=== PATIENT | male | born 1975 | race Two or more races ===

== ENCOUNTER 2018-02-23 23:48 | Emergency (ER) | payer SELFPAY ==
[~2018-02-23] VITALS: Ht 167.6 cm; Wt 68.0 kg
--- NOTE | 2018-02-24 00:39 | PHYS DOC ---
Past Medical History Past Medical History: No Pertinent History Past Surgical History: No Surgical History Alcohol Use: Occasionally Drug Use: None Adult General Chief Complaint Chief Complaint: URINE CATHETER PROBLEM HPI HPI Patient is a 42 year old male who presents today complaining of moderate pain on his lower back as well as scrotal area. Patient states he was thrown off a horse one month ago, he states he fractured his pelvis and he had surgery. He states he ended up with a suprapubic catheter, he is non weight bearing to BLE and currently wheelchair bound. He states since this morning he has had increased pain to his lower back as well as his scrotal area. Patient denies any new injuries. He states he is on hydrocodone but ran out of the medication. Patient denies any fever. Denies any nausea /vomiting. He states he is nonweightbearing to bilateral lower extremities. Review of Systems Review of Systems Constitutional: Denies fever or chills [] Eyes: Denies change in visual acuity, redness, or eye pain [] HENT: Denies nasal congestion or sore throat [] Respiratory: Denies cough or shortness of breath [] Cardiovascular: No additional information not addressed in HPI [] GI: Denies abdominal pain, nausea, vomiting, bloody stools or diarrhea [] : Denies dysuria or hematuria [] Male :Reports scrotal pain Musculoskeletal: Reports bilateral low back pain Integument: Denies rash or skin lesions [] Neurologic: Denies headache, focal weakness or sensory changes [] All other systems were reviewed and found to be within normal limits, except as documented in this note. Current Medications Current Medications Current Medications Medications (Trade) Dose Ordered Sig/Tonia Start Time Stop Time Status Last Admin Dose Admin Ceftriaxone Sodium 1 gm/ Dextrose 50 ml @ 100 mls/hr Q24H 02/24/18 03:30 UNV Ceftriaxone Sodium (Rocephin) 1 gm 1X ONCE 02/24/18 04:00 02/24/18 04:01 DC 02/24/18 03:55 1 GM Lactobacillus Rhamnosus (Culturelle) 1 cap BID 02/24/18 09:00 Cancel Morphine Sulfate (Morphine Sulfate) 5 mg 1X ONCE 02/24/18 01:00 02/24/18 01:01 DC 02/24/18 01:06 5 MG Ondansetron HCl (Zofran) 4 mg 1X ONCE 02/24/18 01:00 02/24/18 01:01 DC 02/24/18 01:06 4 MG Sodium Chloride 1,000 ml @ 1,000 mls/hr 1X ONCE 02/24/18 01:00 02/24/18 01:59 DC 02/24/18 00:55 1,000 MLS/HR Tamsulosin HCl (Flomax) 0.4 mg 1X ONCE 02/24/18 01:00 02/24/18 01:01 DC 02/24/18 01:05 0.4 MG Allergies Allergies Allergies Coded Allergies Type Severity Reaction Last Updated Verified No Known Drug Allergies 05/26/13 No Physical Exam Physical Exam Constitutional: Well developed, well nourished, no acute distress, non-toxic appearance. [] HENT: Normocephalic, atraumatic, bilateral external ears normal, oropharynx moist, no oral exudates, nose normal. [] Eyes: PERRLA, EOMI, conjunctiva normal, no discharge. [] Neck: Normal range of motion, no tenderness, supple, no stridor. [] Cardiovascular:Heart rate regular rhythm, no murmur [] Lungs & Thorax: Bilateral breath sounds clear to auscultation [] Abdomen: Suprapubic catheter noted. Urine bright pink with the sediments, patient states his own cranberry juice and azo. Bowel sounds normal, soft, no tenderness, no masses, no pulsatile masses. [] Male : Exterior scrotum appears slightly erythematous. No palpable masses. No warmth. Skin: Warm, dry, no erythema, no rash. [] Back: No tenderness, no CVA tenderness. [] Extremities: No tenderness, no cyanosis, no clubbing, ROM intact, no edema. [] Neurologic: Alert and oriented X 3, normal motor function, normal sensory function, no focal deficits noted. [] Psychologic: Affect normal, judgement normal, mood normal. [] Current Patient Data Vital Signs Vital Signs Date Time Temp Pulse Resp B/P (MAP) Pulse Ox O2 Delivery O2 Flow Rate FiO2 02/24/18 03:30 74 18 124/77 (93) 99 Room Air 02/24/18 00:00 99.0 99.0 Lab Values Laboratory Tests Test 02/24/18 00:50 White Blood Count 11.2 x10^3/uL (4.0-11.0) H Red Blood Count 4.20 x10^6/uL (4.30-5.70) L Hemoglobin 12.5 g/dL (13.0-17.5) L Hematocrit 37.2 % (39.0-53.0) L Mean Corpuscular Volume 89 fL (79-100) Mean Corpuscular Hemoglobin 30 pg (25-35) Mean Corpuscular Hemoglobin Concent 34 g/dL (31-37) Red Cell Distribution Width 14.0 % (11.5-14.5) Platelet Count 389 x10^3/uL (140-400) Neutrophils (%) (Auto) 59 % (31-73) Lymphocytes (%) (Auto) 29 % (24-48) Monocytes (%) (Auto) 10 % (0-9) H Eosinophils (%) (Auto) 2 % (0-3) Basophils (%) (Auto) 1 % (0-3) Neutrophils # (Auto) 6.6 x10^3uL (1.8-7.7) Lymphocytes # (Auto) 3.2 x10^3/uL (1.0-4.8) Monocytes # (Auto) 1.1 x10^3/uL (0.0-1.1) Eosinophils # (Auto) 0.2 x10^3/uL (0.0-0.7) Basophils # (Auto) 0.1 x10^3/uL (0.0-0.2) Urine Color [place] Urine Clarity Cloudy Urine pH Urine Specific [place] Urine Protein mg/dL (NEG-TRACE) Urine Glucose (UA) Negative mg/dL (NEG) Urine Ketones (Stick) mg/dL (NEG) Urine Blood (NEG) Urine Nitrite (NEG) Urine Bilirubin (NEG) Urine Urobilinogen Dipstick mg/dL (0.2 mg/dL) Urine Leukocyte Esterase (NEG) Urine RBC 6-10 /HPF (0-2) Urine WBC Tntc /HPF (0-4) Urine Squamous Epithelial Cells Occ /LPF Urine Bacteria Moderate /HPF (0-FEW) Sodium Level 139 mmol/L (136-145) Potassium Level 3.8 mmol/L (3.5-5.1) Chloride Level 103 mmol/L (98-107) Carbon Dioxide Level 26 mmol/L (21-32) Anion Gap 10 (6-14) Blood Urea Nitrogen 15 mg/dL (8-26) Creatinine 0.8 mg/dL (0.7-1.3) Estimated GFR (Cockcroft-Gault) 107.1 BUN/Creatinine Ratio 19 (6-20) Glucose Level 114 mg/dL (70-99) H Calcium Level 8.9 mg/dL (8.5-10.1) Total Bilirubin 0.2 mg/dL (0.2-1.0) Aspartate Amino Transferase (AST) 15 U/L (15-37) Alanine Aminotransferase (ALT) 19 U/L (16-63) Alkaline Phosphatase 108 U/L (46-116) Total Protein 7.3 g/dL (6.4-8.2) Albumin 3.0 g/dL (3.4-5.0) L Albumin/Globulin Ratio 0.7 (1.0-1.7) L Lipase 121 U/L (73-393) Urine Opiates Screen Neg (NEG) Urine Methadone Screen Neg (NEG) Urine Barbiturates Neg (NEG) Urine Phencyclidine Screen Neg (NEG) Urine Amphetamine/Methamphetamine Neg (NEG) Urine Benzodiazepines Screen Neg (NEG) Urine Cocaine Screen Neg (NEG) Urine Cannabinoids Screen Pos (NEG) Urine Ethyl Alcohol Neg (NEG) Laboratory Tests 02/24/18 00:50 Laboratory Tests 02/24/18 00:50 EKG EKG [] Radiology/Procedures Radiology/Procedures [facility] [address] [place] [address] IMAGING REPORT Signed PATIENT: HILARY LIU ACCOUNT: [id number] : 1975 LOCATION: ER AGE: 42 SEX: M EXAM STATUS: REG ER ORD. PHYSICIAN: JOSE J CASTRO APRN REASON: pain to the scrotum/testicles PROCEDURE: TESTICULAR/SCROTUM Scrotal ultrasound: Reason for examination: Pain in the scrotum/testicles. The right testicle measures 4.3 x 3.2 x 1.8 cm in greatest dimension and appears homogeneous and shows normal blood flow. The epididymis is normal in size at 10 x 8.3 x 7.3 mm with normal vascular flow. There is a small right hydrocele. The left testicle measures 4.0 x 2.0 x 2.9 cm in greatest dimension and appears homogeneous and shows normal blood flow. The left epididymis measures 11.2 x 8.1 x 1.1 cm in greatest dimension and shows normal vascularity. A small left hydrocele is present. IMPRESSION: Small hydroceles bilaterally. No focal abnormalities at the testicles or epididymitis. Electronically signed by: Nadira Elliott MD (02/24/2018 2:10 AM) [facility] DICTATED and SIGNED BY: NADIRA ELLIOTT MD DATE: 02/24/18 0207 [facility] [address] [place] [address] IMAGING REPORT Signed PATIENT: HILARY LIU ACCOUNT: [id number] : 1975 LOCATION: ER AGE: 42 SEX: M EXAM STATUS: REG ER ORD. PHYSICIAN: JOSE J CASTRO APRN REASON: pubic pain, scrotal pain hx of pelvic fx one month ago PROCEDURE: CT ABDOMEN PELVIS WO CONTRAST CT abdomen and pelvis without contrast: Reason for examination: Pubic pain and scrotal pain. History of pelvic fracture one month ago. Helical images were obtained through the abdomen pelvis with no intravenous or oral contrast administered. Reconstruction was performed in sagittal and coronal planes. Exposure: One or more of the following individualized dose reduction techniques were utilized for this examination: 1. Automated exposure control 2. Adjustment of the mA and/or kV according to patient size 3. Use of iterative reconstruction technique. The lung bases are clear. The heart size is normal with no pericardial effusion. No abnormality seen at the liver, spleen, adrenal glands, or pancreas. Gallbladder is contracted but no choleliths are seen. There is a large amount of gastric content present. No abnormality seen at the appendix. The intestinal tract shows no evidence of diverticulosis or diverticulitis. The small intestine is not distended. The kidneys show no renal masses, renal calculi, hydronephrosis or evidence of obstructive uropathy. There is a large amount of streak artifact in the pelvis from postop changes anteriorly in the pelvis with fractures seen in the pubic bones and ischial bones bilaterally and fracture seen at the left sacrum corresponding to history of pelvic fracture. Suprapubic catheter is present in the bladder. Prostate gland is not enlarged. Seminal vesicles appear symmetric. No free fluid is seen in the abdomen or pelvis. IMPRESSION: Contracted gallbladder but no cholelithiasis. The stomach however is distended with large amount of gastric content in the patient has not been nothing by mouth. No kidney stones or obstructive uropathy evident. Postop changes in the pelvic with fractures of the pubic and ischial bones bilaterally and left sacrum. Electronically signed by: Nadira Elliott MD (02/24/2018 2:33 AM) [facility] DICTATED and SIGNED BY: NADIRA ELLIOTT MD DATE: 02/24/18209 Course & Med Decision Making Course & Med Decision Making Pertinent Labs and Imaging studies reviewed. (See chart for details) This is a 42-year-old male patient presenting to the ED today complaining of low back pain as well as scrotal pain. Patient fractured his pelvis a month ago. He is nonweightbearing to bilateral lower extremities. Has a suprapubic catheter, non weight bearing to bilateral lower extremities currently wheel chair bound. He also ran out of his pain medicine. 00:[address] Rothman 03:10 Patient feels better with decreased pain. Abdominal pelvic CT scan notes gastric distention otherwise unremarkable without acute changes. Will given Rocephin for UTI. Patient to follow-up with PCP for further evaluation. Ed Disclaimer Ed Disclaimer This electronic medical record was generated, in whole or in part, using a voice recognition dictation system. Departure Departure Impression: Primary Impression: Low back pain Additional Impressions: Post-operative pain UTI (urinary tract infection) Disposition: 01 HOME, SELF-CARE Condition: STABLE Referrals: NO PCP (PCP) Follow-up for further evaluation tomorrow LIGIA CLEMENTE MD Patient Instructions: Back Pain, Adult, Urinary Tract Infection Additional Instructions: If you develop worse pain, fevers, vomiting, shortness of breath return to the Emergency Department. Scripts Oxycodone/Apap 5-325 (PERCOCET 5-325 MG TABLET) 1 Each Tablet 1 TAB PO QID, #12 TAB Prov: APRIL ROTHMAN MD 02/24/18 Cephalexin (KEFLEX) 250 Mg Capsule 1 CAP PO TID, #21 CAP Prov: APRIL ROTHMAN MD 02/24/18 Problem Qualifiers Primary Impression: Low back pain Chronicity: acute Back pain laterality: bilateral Sciatica presence: without sciatica Qualified Codes: M54.5 - Low back pain JOSE J CASTRO APRN Feb 24, 2018 00:39 APRIL ROTHMAN MD Feb 24, 2018 03:26
[2018-02-24] MEDS ORDERED: IV NORMAL SALINE 1000ML BAG 1,000 ML IV ONE (01:00)
[2018-02-24] MEDS ORDERED: MORPHINE SULFATE 10 MG/ML VIAL. IV ONE (01:00)
[2018-02-24] MEDS ORDERED: TAMSULOSIN 0.4 MG CAP.ER.24H. PO ONE (01:00)
[2018-02-24] MEDS ORDERED: ONDANSETRON PF 4 MG/2 ML VIAL. IV ONE (01:00)
[2018-02-24 01:10] LABS: BASO # 0.1 x10^3/uL (0.0-0.2); BASO % 1 % (0-3); EOS # 0.2 x10^3/uL (0.0-0.7); EOS % 2 % (0-3); HEMATOCRIT 37.2 % (39.0-53.0); HEMOGLOBIN 12.5 g/dL (13.0-17.5); LYMPH # 3.2 x10^3/uL (1.0-4.8); LYMPH % 29 % (24-48); MEAN CORPUSCULAR HEMOGLOBIN 30 pg (25-35); MEAN CORPUSCULAR HGB CONC 34 g/dL (31-37); MEAN CORPUSCULAR VOLUME 89 fL (79-100); MONO # 1.1 x10^3/uL (0.0-1.1); MONO % 10 % (0-9); NEUT # 6.6 x10^3uL (1.8-7.7); NEUT % 59 % (31-73); PLATELET COUNT 389 x10^3/uL (140-400); WHITE BLOOD COUNT 11.2 x10^3/uL (4.0-11.0)
[2018-02-24 01:18] LABS: CLARITY,URINE CLOUDY; COLOR,URINE ORANGE
[2018-02-24 01:28] LABS: BARBITURATES NEG (NEG); BENZODIAZEPINES NEG (NEG); CANNABINOIDS POS (NEG); COCAINE NEG (NEG); METHADONE NEG (NEG); OPIATES NEG (NEG); PHENCYCLIDINE NEG (NEG)
[2018-02-24 01:33] LABS: CALCIUM 8.9 mg/dL (8.5-10.1); CREATININE 0.8 mg/dL (0.7-1.3); GFR 107.1; POTASSIUM 3.8 mmol/L (3.5-5.1)
[2018-02-24 01:42] LABS: AMPHETAMINE/METHAMPHETAMINE NEG (NEG)
[2018-02-24 01:43] LABS: ALBUMIN/GLOBULIN RATIO 0.7 (1.0-1.7); TOTAL BILIRUBIN 0.2 mg/dL (0.2-1.0); TOTAL PROTEIN 7.3 g/dL (6.4-8.2)
[2018-02-24 02:02] LABS: BACTERIA,URINE MODERATE /HPF (0-FEW); SQUAMOUS EPITHELIAL CELL,UR OCC /LPF; WBC,URINE TNTC /HPF (0-4)
--- NOTE | 2018-02-24 02:13 | RAD ---
Scrotal ultrasound: Reason for examination: Pain in the scrotum/testicles. The right testicle measures 4.3 x 3.2 x 1.8 cm in greatest dimension and appears homogeneous and shows normal blood flow. The epididymis is normal in size at 10 x 8.3 x 7.3 mm with normal vascular flow. There is a small right hydrocele. The left testicle measures 4.0 x 2.0 x 2.9 cm in greatest dimension and appears homogeneous and shows normal blood flow. The left epididymis measures 11.2 x 8.1 x 1.1 cm in greatest dimension and shows normal vascularity. A small left hydrocele is present. IMPRESSION: Small hydroceles bilaterally. No focal abnormalities at the testicles or epididymitis. Electronically signed by: Nadira Rascon MD (02/24/2018 2:10 AM) [facility]
--- NOTE | 2018-02-24 02:37 | RAD ---
CT abdomen and pelvis without contrast: Reason for examination: Pubic pain and scrotal pain. History of pelvic fracture one month ago. Helical images were obtained through the abdomen pelvis with no intravenous or oral contrast administered. Reconstruction was performed in sagittal and coronal planes. Exposure: One or more of the following individualized dose reduction techniques were utilized for this examination: 1. Automated exposure control 2. Adjustment of the mA and/or kV according to patient size 3. Use of iterative reconstruction technique. The lung bases are clear. The heart size is normal with no pericardial effusion. No abnormality seen at the liver, spleen, adrenal glands, or pancreas. Gallbladder is contracted but no choleliths are seen. There is a large amount of gastric content present. No abnormality seen at the appendix. The intestinal tract shows no evidence of diverticulosis or diverticulitis. The small intestine is not distended. The kidneys show no renal masses, renal calculi, hydronephrosis or evidence of obstructive uropathy. There is a large amount of streak artifact in the pelvis from postop changes anteriorly in the pelvis with fractures seen in the pubic bones and ischial bones bilaterally and fracture seen at the left sacrum corresponding to history of pelvic fracture. Suprapubic catheter is present in the bladder. Prostate gland is not enlarged. Seminal vesicles appear symmetric. No free fluid is seen in the abdomen or pelvis. IMPRESSION: Contracted gallbladder but no cholelithiasis. The stomach however is distended with large amount of gastric content in the patient has not been nothing by mouth. No kidney stones or obstructive uropathy evident. Postop changes in the pelvic with fractures of the pubic and ischial bones bilaterally and left sacrum. Electronically signed by: Nadira Rascon MD (02/24/2018 2:33 AM) [place] [id number]
[2018-02-24] MEDS ORDERED: CEPH-263 PO (03:26)
[2018-02-24] MEDS ORDERED: OXYC-323 PO (03:26)
[2018-02-24 03:30] VITALS: BP 124/77
[2018-02-24] MEDS ORDERED: cefTRIAXone IV Push 1 GM VIAL. IVP ONE (04:00)
[2018-02-24] MEDS ORDERED: LACTOBACILLUS RHAMNOSUS GG 1 CAPSULE. PO SCH (09:00)
[2018-02-24] MEDS ORDERED: cefTRIAXone IV Push 1 GM VIAL. IVP SCH (23:00)
== END 2018-02-24 04:06 | disposition home or self-care (01) ==
LOC: ER 23:48
DX: N39.0 Urinary tract infection, site not specified (principal); M54.5 Low back pain; G89.18 Other acute postprocedural pain; L53.8 Other specified erythematous conditions; N43.3 Hydrocele, unspecified
CPT/HCPCS: 36415; 74176; 76870; 80053; 80307; 81001; 83690; 85025; 87086; 96374; 96375; 99285; J0696; J2270; J2405; J7030; G0479

== ENCOUNTER 2018-03-03 20:34 | Emergency (ER) | payer SELFPAY ==
[~2018-03-03] VITALS: Ht 172.7 cm; Wt 68.0 kg
[~2018-03-03 20:34] MED LIST: CEPH-263 PO; OXYC-323 PO
--- NOTE | 2018-03-03 21:01 | PHYS DOC ---
Past Medical History Past Medical History: No Pertinent History Past Surgical History: Tonsillectomy Additional Past Surgical Histo: PELVIS REPAIR Alcohol Use: None Drug Use: Marijuana Adult General Chief Complaint Chief Complaint: POST-OP PROBLEM HPI HPI Patient is a 42 year old man who presents with lower abdominal pain Patient was seen by me last week on the and ran out of his pain medication 2 days ago Tuesday. Since then, his had increased pain in his lower abdomen and pelvis. He feels a sense of burning in his urethra though he has a suprapubic catheter. He also complains of right thigh pain. No fevers or vomiting. Patient states he called his primary doctor is Dr. Miles at [facility] and was unable to get a refill of his pain medication, hydrocodone. That's why he came to [facility] today. Patient states he was thrown off a horse one month ago with fractured pelvis and ORIF surgery. He ended up with a suprapubic catheter and is non weight bearing to [facility], currently wheelchair bound. Review of Systems Review of Systems Constitutional: Denies fever or chills Eyes: Denies change in visual acuity, redness, or eye pain HENT: Denies nasal congestion or sore throat Respiratory: Denies cough or shortness of breath Cardiovascular: Denies chest pain or palpitations GI: with lower abdominal pain, nausea, no vomiting, bloody stools or diarrhea : Denies dysuria or hematuria Musculoskeletal: with back and pelvic pain, right thigh pain, denies joint pain Integument: Denies rash or skin lesions Neurologic: Denies headache, focal weakness or sensory changes Endocrine: Denies polyuria or polydipsia All other systems were reviewed and found to be within normal limits, except as documented in this note. Current Medications Current Medications Current Medications Medications (Trade) Dose Ordered Sig/Tonia Start Time Stop Time Status Last Admin Dose Admin Acetaminophen/ Hydrocodone Bitart (Lortab 5/325) 1 tab 1X ONCE 03/03/18 22:00 03/03/18 22:01 DC 03/03/18 22:00 1 TAB Enoxaparin Sodium (Lovenox 80mg Syringe) 70 mg 1X ONCE 03/04/18 00:15 03/04/18 00:16 DC 03/04/18 00:46 70 MG Magnesium Oxide (Magnesium Oxide) 800 mg 1X ONCE 03/03/18 22:55 03/03/18 22:56 DC 03/03/18 22:55 800 MG Oxybutynin Chloride (Ditropan) 5 mg 1X ONCE 03/04/18 00:15 03/04/18 00:16 DC 03/04/18 00:25 5 MG Potassium Chloride (KCl Oral Soln) 40 meq 1X ONCE 03/03/18 22:55 03/03/18 22:56 DC 03/03/18 23:13 40 MEQ Warfarin Sodium (Coumadin) 5 mg 1X ONCE 03/04/18 00:45 03/04/18 00:46 DC 03/04/18 00:47 5 MG Allergies Allergies Allergies Coded Allergies Type Severity Reaction Last Updated Verified No Known Drug Allergies 05/26/13 No Physical Exam Physical Exam Constitutional: Well developed, well nourished, no acute distress, non-toxic appearance. HENT: Normocephalic, atraumatic, bilateral external ears normal, oropharynx moist, no oral exudates, nose normal. Eyes: PERRLA, EOMI, conjunctiva normal, no discharge. Neck: Normal range of motion, no tenderness, supple, no stridor. Cardiovascular:Heart rate regular rhythm, no murmur Lungs & Thorax: Bilateral breath sounds clear to auscultation Abdomen: Bowel sounds decreased, soft, with suprapubic tenderness, suprapubic catheter site intact, no erythema or drainage, no masses, no pulsatile masses. Skin: Warm, dry, no erythema, no rash. Back: No tenderness, no CVA tenderness. Extremities: No tenderness, no cyanosis, no clubbing, ROM intact, no edema. Pelvis stable though with tenderness to palpation. Neurologic: Alert and oriented X 3, soil conservation aide II-XII intact, normal motor function, normal sensory function, no focal deficits noted. Psychologic: Affect normal, judgement normal, mood normal. Current Patient Data Vital Signs Vital Signs Date Time Temp Pulse Resp B/P (MAP) Pulse Ox O2 Delivery O2 Flow Rate FiO2 03/04/18 00:56 68 14 122/65 (84) 99 Room Air 03/03/18 20:58 98.3 98.3 Lab Values Laboratory Tests Test 03/03/18 21:11 03/03/18 21:18 Urine Collection Type Unknown Urine Color Yellow Urine Clarity Clear Urine pH 6.0 Urine Specific Plessis 1.020 Urine Protein Negative mg/dL (NEG-TRACE) Urine Glucose (UA) Negative mg/dL (NEG) Urine Ketones (Stick) Negative mg/dL (NEG) Urine Blood Trace (NEG) Urine Nitrite Negative (NEG) Urine Bilirubin Negative (NEG) Urine Urobilinogen Dipstick 0.2 mg/dL (0.2 mg/dL) Urine Leukocyte Esterase Small (NEG) Urine RBC 1-2 /HPF (0-2) Urine WBC 5-10 /HPF (0-4) Urine Squamous Epithelial Cells Occ /LPF Urine Bacteria 0 /HPF (0-FEW) Urine Mucus Slight /LPF White Blood Count 12.3 x10^3/uL (4.0-11.0) H Red Blood Count 4.39 x10^6/uL (4.30-5.70) Hemoglobin 13.2 g/dL (13.0-17.5) Hematocrit 38.4 % (39.0-53.0) L Mean Corpuscular Volume 88 fL (79-100) Mean Corpuscular Hemoglobin 30 pg (25-35) Mean Corpuscular Hemoglobin Concent 34 g/dL (31-37) Red Cell Distribution Width 14.2 % (11.5-14.5) Platelet Count 464 x10^3/uL (140-400) H Neutrophils (%) (Auto) 66 % (31-73) Lymphocytes (%) (Auto) 24 % (24-48) Monocytes (%) (Auto) 8 % (0-9) Eosinophils (%) (Auto) 1 % (0-3) Basophils (%) (Auto) 1 % (0-3) Neutrophils # (Auto) 8.1 x10^3uL (1.8-7.7) H Lymphocytes # (Auto) 3.0 x10^3/uL (1.0-4.8) Monocytes # (Auto) 1.0 x10^3/uL (0.0-1.1) Eosinophils # (Auto) 0.2 x10^3/uL (0.0-0.7) Basophils # (Auto) 0.1 x10^3/uL (0.0-0.2) Prothrombin Time 12.5 SEC (11.7-14.0) Prothrombin Time INR 1.0 (0.8-1.1) D-Dimer (Cira) 1.42 ug/mlFEU (0.00-0.50) H Sodium Level 141 mmol/L (136-145) Potassium Level 3.2 mmol/L (3.5-5.1) L Chloride Level 103 mmol/L (98-107) Carbon Dioxide Level 27 mmol/L (21-32) Anion Gap 11 (6-14) Blood Urea Nitrogen 11 mg/dL (8-26) Creatinine 0.7 mg/dL (0.7-1.3) Estimated GFR (Cockcroft-Gault) 124.9 Glucose Level 117 mg/dL (70-99) H Lactic Acid Level 0.8 mmol/L (0.4-2.0) Calcium Level 9.0 mg/dL (8.5-10.1) Magnesium Level 1.5 mg/dL (1.8-2.4) L Procalcitonin < 0.10 ng/mL (0.00-0.10) Laboratory Tests 03/03/18 21:18 Laboratory Tests 03/03/18 21:18 EKG EKG [] Radiology/Procedures Radiology/Procedures [facility] [address] [place] [address] IMAGING REPORT Signed PATIENT: HILARY LIU ACCOUNT: [id number] : 1975 LOCATION: ER AGE: 42 SEX: M EXAM STATUS: REG ER ORD. PHYSICIAN: APRIL WISDOM MD REASON: pain PROCEDURE: KUB History: Pelvic pain, recent operation. Comparison: None. Findings: AP view the abdomen. Bowel gas pattern is nonspecific, without obstruction. Malleable orthopedic fixation plate and multiple orthopedic screws can be seen involving bilateral superior pubic rami and pubic symphysis. This hardware fixates bilateral obturator ring fractures. There is also a large syndesmotic screw extending horizontally from the left sacroiliac joint through the right sacroiliac joint. Impression: Nonspecific bowel gas pattern. Electronically signed by: Gabino Mcnulty MD (03/03/2018 9:36 PM) [facility] DICTATED and SIGNED BY: GABINO MCNULTY MD DATE: 03/03/18 1196 [facility] [address] [place] [address] IMAGING REPORT Signed PATIENT: HILARY LIU ACCOUNT: [id number] : 1975 LOCATION: ER AGE: 42 SEX: M EXAM STATUS: REG ER ORD. PHYSICIAN: APRIL WISDOM MD REASON: LEG PAIN PROCEDURE: VENOUS LOWER EXT BILATERAL Bilateral Lower Extremity Venous Doppler Ultrasound Indication: Leg pain. Postoperative 6 weeks. Comparison: None. Procedure: Color Doppler, spectral Doppler, and grayscale images with and without compression are obtained in the area of the common femoral vein, superficial femoral vein - femoral vein junction, main femoral vein (superficial femoral vein) and popliteal vein. Veins of the proximal calf are also imaged. Findings: There is normal duplex flow, color flow and compressibility of all visualized vein segments. There is no evidence of deep venous thrombosis. Impression: No evidence of lower extremity deep venous thrombosis. Electronically signed by: Gabino Mcnulty MD (03/03/2018 11:12 PM) [facility] DICTATED and SIGNED BY: GABINO MCNULTY MD DATE: 03/03/18 8298 Course & Med Decision Making Course & Med Decision Making Pertinent Labs and Imaging studies reviewed. (See chart for details) Emergency Department course Patient presents with lower abdominal and pelvic pain, right thigh pain DDx- DVT, obstruction, constipation, UTI Patient was stable in the ED. Labs remarkable for hypokalemia, hypomagnesemia, elevated D-dimer. Noting right groin pain, Duplex Doppler of LE was negative for DVT. Patient was given potassium and magnesium replacement. Evaluation for infection was unremarkable. Serum lactate was normal and procalcitonin was normal. U/A unremarkable. 21:[address] Rodriguez-intervention manager orthopedics who will relay to Dr. Miles the patient need for follow-up, Dr. Miles's office number is [phone]. Dr. Rodriguez is concerned because the patient is not on DVT prophylaxis. 00:20 Patient stable in the ED with complaints of dysuria, and right groin pain. Patient denies chest pain or SOB. He take aspirin daily for "blood thinner". He said the medication Dr. Miles prescribed cost $700 dollars and he was not able to afford it. He wants pain medication and medication for dysuria. I told him his dysuria is likely bladder spasm and I will start him on anticoagulation. He is to follow-up with Dr. Miles on Tuesday without fail. I told him he needs to get his pain medication from Dr. Miles in the future. Dragon Disclaimer Dragon Disclaimer This electronic medical record was generated, in whole or in part, using a voice recognition dictation system. Departure Departure Impression: Primary Impression: Pelvic pain Additional Impressions: Post-operative pain Dysuria Hypokalemia Hypomagnesemia Disposition: HOME, SELF-CARE Condition: STABLE Referrals: NO PCP (PCP) GABINO CLEMENTE MD Follow-up on Tuesday for further evaluation Patient Instructions: Abdominal Pain, Hypokalemia, Hypomagnesemia, Overactive Bladder, Adult Additional Instructions: If you develop worse pain, fevers, shortness of breath, vomiting, bleeding return to the Emergency department immediately Kaylen Miles MD [facility] [address] [place] [address] Call#[phone] Call Tuesday in 3 days for further evaluation Scripts Oxybutynin Chloride (DITROPAN XL) 10 Mg Tab.er.24 1 TAB PO DAILY, #10 TAB 0 Refills Prov: APRIL WISDOM MD 03/04/18 Warfarin Sodium (WARFARIN SODIUM) 5 Mg Tablet 1 TAB PO DAILY for 5 Days, #5 TAB 1 Refill Prov: APRIL WISDOM MD 03/04/18 Magnesium Oxide (MAG-OXIDE) 400 Mg Tablet 1 TAB PO BID, #10 TAB 0 Refills Prov: APRIL WISDOM MD 03/04/18 Potassium Chloride (POTASSIUM CHLORIDE) 20 Meq Tablet.er 20 MEQ PO DAILY for 5 Days, #5 TAB.SR Prov: APRIL WISDOM MD 03/04/18 Hydrocodone/Apap 5-325 (NORCO 5-325 TABLET) 1 Each Tablet 1 TAB PO PRN Q6HRS PRN for PAIN for 3 Days, #12 TAB 0 Refills Prov: APRIL WISDOM MD 03/04/18 Problem Qualifiers APRIL WISDOM MD Mar 03, 2018 21:01
[2018-03-03 21:35] LABS: BILIRUBIN,URINE NEGATIVE (NEG); CLARITY,URINE CLEAR; COLOR,URINE YELLOW; NITRITE,URINE NEGATIVE (NEG); PROTEIN,URINE NEGATIVE (NEG-TRACE); UROBILINOGEN,URINE 0.2 mg/dL (0.2 mg/dL)
[2018-03-03 21:37] LABS: BASO # 0.1 x10^3/uL (0.0-0.2); BASO % 1 % (0-3); EOS # 0.2 x10^3/uL (0.0-0.7); EOS % 1 % (0-3); HEMATOCRIT 38.4 % (39.0-53.0); HEMOGLOBIN 13.2 g/dL (13.0-17.5); LYMPH % 24 % (24-48); MEAN CORPUSCULAR HEMOGLOBIN 30 pg (25-35); MEAN CORPUSCULAR HGB CONC 34 g/dL (31-37); MEAN CORPUSCULAR VOLUME 88 fL (79-100); MONO % 8 % (0-9); NEUT # 8.1 x10^3uL (1.8-7.7); NEUT % 66 % (31-73); PLATELET COUNT 464 x10^3/uL (140-400); RED BLOOD COUNT 4.39 x10^6/uL (4.30-5.70); RED CELL DISTRIBUTION WIDTH 14.2 % (11.5-14.5); WHITE BLOOD COUNT 12.3 x10^3/uL (4.0-11.0)
--- NOTE | 2018-03-03 21:40 | RAD ---
History: Pelvic pain, recent operation. Comparison: None. Findings: AP view the abdomen. Bowel gas pattern is nonspecific, without obstruction. Malleable orthopedic fixation plate and multiple orthopedic screws can be seen involving bilateral superior pubic rami and pubic symphysis. This hardware fixates bilateral obturator ring fractures. There is also a large syndesmotic screw extending horizontally from the left sacroiliac joint through the right sacroiliac joint. Impression: Nonspecific bowel gas pattern. Electronically signed by: Gabino Coleman MD (03/03/2018 9:36 PM) [facility]
[2018-03-03 21:41] LABS: BACTERIA,URINE 0 /HPF (0-FEW); SQUAMOUS EPITHELIAL CELL,UR OCC /LPF
[2018-03-03 21:44] LABS: CREATININE 0.7 mg/dL (0.7-1.3); GFR 124.9; POTASSIUM 3.2 mmol/L (3.5-5.1)
[2018-03-03] MEDS ORDERED: HYDROcodone/APAP 5/325MG 1 TAB TABLET PO ONE (22:00)
[2018-03-03] MEDS ORDERED: MAGNESIUM OXIDE 400 MG TABLET PO ONE (22:55)
[2018-03-03] MEDS ORDERED: POTASSIUM CHLORIDE 20 MEQ/15 ML ORAL LIQUID. PO ONE (22:55)
--- NOTE | 2018-03-03 23:15 | RAD ---
Bilateral Lower Extremity Venous Doppler Ultrasound Indication: Leg pain. Postoperative 6 weeks. Comparison: None. Procedure: Color Doppler, spectral Doppler, and grayscale images with and without compression are obtained in the area of the common femoral vein, superficial femoral vein - femoral vein junction, main femoral vein (superficial femoral vein) and popliteal vein. Veins of the proximal calf are also imaged. Findings: There is normal duplex flow, color flow and compressibility of all visualized vein segments. There is no evidence of deep venous thrombosis. Impression: No evidence of lower extremity deep venous thrombosis. Electronically signed by: Gabino Coleman MD (03/03/2018 11:12 PM) [facility]
[2018-03-04] MEDS ORDERED: OXYBUTYNIN CHLORIDE 5 MG TABLET PO ONE (00:15)
[2018-03-04] MEDS ORDERED: POTA20TA82 PO (00:27)
[2018-03-04] MEDS ORDERED: HYDR-971 PO (00:27)
[2018-03-04] MEDS ORDERED: MAGN400T22 PO (00:27)
[2018-03-04] MEDS ORDERED: WARF-31 PO (00:31)
[2018-03-04 00:39] LABS: PROTHROMBIN TIME PATIENT 12.5 SEC (11.7-14.0)
[2018-03-04] MEDS ORDERED: OXYB10TA7 PO (00:44)
[2018-03-04] MEDS ORDERED: WARFARIN 5 MG TABLET. PO ONE (00:45)
[2018-03-04 00:56] VITALS: BP 122/65
== END 2018-03-04 01:15 | disposition home or self-care (01) ==
LOC: ER 20:34
DX: R10.2 Pelvic and perineal pain (principal); R30.0 Dysuria; G89.18 Other acute postprocedural pain; E87.6 Hypokalemia; E83.42 Hypomagnesemia; Z98.890 Other specified postprocedural states
CPT/HCPCS: 36415; 74018; 80048; 81001; 83605; 83735; 84145; 85025; 85379; 85610; 87086; 93970; 96372; 99285; J1650